=== PATIENT | female | born 2005 | race Caucasian/White ===

== ENCOUNTER 2025-04-06 08:39 | Emergency (ER) | payer OTHER ==
[~2025-04-06] VITALS: Ht 162.6 cm; Wt 80.0 kg
[2025-04-06 08:57] VITALS: BP 118/78; PULSE 72; RESP 18; TEMP 97.9; O2SAT 99
[2025-04-06] MEDS ORDERED: DIPH25CA85 PO (10:32)
[2025-04-06] MEDS ORDERED: TETR-58 PO (10:32)
== END 2025-04-06 10:46 | disposition home or self-care (01) ==
LOC: EMS 08:42
DX: S41.051A Open bite of right shoulder, initial encounter (principal); T14.8XXA Other injury of unspecified body region, initial encounter; W57.XXXA Bitten or stung by nonvenomous insect and other nonvenomous arthropods, initial encounter; Y93.89 Activity, other specified; Y92.89 Other specified places as the place of occurrence of the external cause; Y99.8 Other external cause status
CPT/HCPCS: 99282; 99283